=== PATIENT | male | born 1955 | race Caucasian/White ===

== ENCOUNTER 2016-07-23 10:58 | Observation (INO) | payer MEDICARE ==
[~2016-07-23] VITALS: Ht 185.4 cm; Wt 114.8 kg
[2016-07-23 11:13] LABS: BASO % 0.7 % (0.2-1.2); EOS # 0.2 10_X3_uL (0.0-0.5); EOS % 3.5 % (0.8-7.0); GRAN # 3.6 10_X3_uL (1.8-5.4); GRAN % 58.4 % (34.0-67.9); HEMATOCRIT 50.1 % (40-51); HEMOGLOBIN 16.9 g/dL (13.7-17.5); LYMPH # 1.6 10_X3_uL (1.3-3.6); LYMPH % 26.2 % (21.8-53.1); MEAN CORPUSCULAR HEMOGLOBIN 30.3 pg (27.0-33.0); MEAN CORPUSCULAR HGB CONC 33.7 g/dL (32.0-36.0); MEAN CORPUSCULAR VOLUME 89.9 fL (79-92); MEAN PLATELET VOLUME 10.2 fl (7.5-11.5); MONO # 0.7 10_X3_uL (0.3-0.8); MONO % 11.2 % (5.3-12.2); PLATELET COUNT 164 x10_3/uL (163-337); RED BLOOD COUNT 5.57 x10_6/uL (4.6-6.1); RED CELL DISTRIBUTION WIDTH 13.7 % (11.6-14.4); WHITE BLOOD COUNT 6.1 x10_3/uL (4.2-9.1)
[2016-07-23 11:31] LABS: ALBUMIN 4.3 gm/dL (3.4-5.0); ALKALINE PHOSPHATASE 66 U/L (50-136); ALT/SGPT 63 U/L (7.53-40.17); AST/SGOT 44 U/L (6.66-35.34); BILIRUBIN,TOTAL 0.79 mg/dL (0.0-1.0); BLOOD UREA NITROGEN 22 mg/dL (7-18); CALCIUM 9.2 mg/dL (8.7-10.7); CARBON DIOXIDE 25 mmol/L (21-32); CREATINE KINASE 106 U/L (35-232); CREATININE 0.9 mg/dL (0.6-1.3); GLUCOSE,RANDOM 103 mg/dL (70-99); POTASSIUM 4.9 mmol/L (3.5-5.1); SODIUM 139 mmol/L (136-145); TOTAL PROTEIN 7.7 gm/dL (6.4-8.2)
[2016-07-23 17:48] LABS: INR 1.1 (0.9-1.1); PARTIAL THROMBOPLASTIN TIME 27.2 SECONDS (21.3-29.3); PROTHROMBIN TIME (PATIENT) 11.9 SECONDS (9.9-11.1)
[2016-07-23 17:52] LABS: CKMB 1.3 ng/ml (0.0-5.0)
[2016-07-23 17:56] LABS: TROP-I < 0.30 NG/ML (0.00-0.30)
[2016-07-23 23:23] LABS: CKMB 1.2 ng/ml (0.0-5.0)
[2016-07-23 23:26] LABS: TROP-I < 0.30 NG/ML (0.00-0.30)
[2016-07-24 05:31] LABS: CKMB 1.1 ng/ml (0.0-5.0)
[2016-07-24 05:38] LABS: TROP-I < 0.30 NG/ML (0.00-0.30)
== END 2016-07-24 12:10 | disposition home or self-care (01) ==
LOC: ER 10:58 → MS 16:07 → UNDODEPER 07-26 10:41
PROVIDERS: Emergency Medicine; ADMIT Family Medicine
DX: R07.89 Other chest pain (principal); R06.02 Shortness of breath; R53.83 Other fatigue; I50.9 Heart failure, unspecified; I10 Essential (primary) hypertension; J44.9 Chronic obstructive pulmonary disease, unspecified; J60 Coalworker's pneumoconiosis; R73.03 Prediabetes; R42 Dizziness and giddiness; R51 Headache; H53.9 Unspecified visual disturbance; J02.9 Acute pharyngitis, unspecified; K62.5 Hemorrhage of anus and rectum; K59.00 Constipation, unspecified; R19.7 Diarrhea, unspecified; R11.0 Nausea; M79.89 Other specified soft tissue disorders; L29.9 Pruritus, unspecified; M25.512 Pain in left shoulder; Z83.3 Family history of diabetes mellitus; Z80.0 Family history of malignant neoplasm of digestive organs; Z80.51 Family history of malignant neoplasm of kidney; Z82.49 Family history of ischemic heart disease and other diseases of the circulatory system; Z87.891 Personal history of nicotine dependence; Z79.899 Other long term (current) drug therapy; Z88.0 Allergy status to penicillin; Z91.041 Radiographic dye allergy status
CPT/HCPCS: 36415; 71010; 71250; 80053; 80061; 82550; 82553; 85025; 85610; 85730; 93005; 93041; 99070; 99284; 99285-25; G0378; J7040; Q9967